=== PATIENT | male | born 1955 | race Caucasian/White ===

== ENCOUNTER 2017-07-30 11:11 | Inpatient (IN) | payer MEDICAID ==
[~2017-07-30] VITALS: Ht 172.7 cm; Wt 95.8 kg
[~2017-07-30 11:11] MED LIST: GLIP10TA10 PO; LOVA40TA73 PO; METF500T4 PO
[2017-07-30 12:55] LABS: BASOPHILS % 0.9 % (0.0-2.0); EOSINOPHILS % 0.8 % (0.0-5.0); HEMATOCRIT. 39.2 % (42.0-52.0); LYMPHOCYTES % 18.8 % (20.0-50.0); MEAN CORPUSCULAR HEMOGLOBIN 29.4 pg (28.0-32.0); MEAN CORPUSCULAR VOLUME 88.8 fL (80.0-94.0); MEAN PLATELET VOLUME 9.7 fl (7.4-10.4); MONOCYTES % 6.2 % (2.0-8.0); NEUTROPHILS % 73.3 % (40.0-76.0); PLATELET 173 x1000/uL (130-400); RED BLOOD CELL COUNT 4.41 mill/uL (4.7-6.1)
[2017-07-30 13:02] LABS: INR 1.1; PROTHROMBIN TIME 11.2 sec (9.4-11.6)
[2017-07-30 13:13] LABS: CARBON DIOXIDE 22 mEq/L (21-32); CHLORIDE 110 mEq/L (98-107)
[2017-07-30 13:23] LABS: TROPONIN I 0.44 ng/mL (0.00-0.04)
[2017-07-30] MEDS ORDERED: ASPIRIN 81MG TABLET PO ONE (14:30)
[2017-07-30] MEDS ORDERED: ACETAMINOPHEN 325MG TABLET PO PRN (14:45)
[2017-07-30] MEDS ORDERED: HYDROCODONE/ACETAMINOPHEN 5/325MG TABLET PO PRN (14:45)
[2017-07-30] MEDS ORDERED: ONDANSETRON HCL 4MG/2ML VIAL IV PRN (14:45)
[2017-07-30] MEDS ORDERED: ENOXAPARIN 40MG/0.4ML SYR SUBCUT SCH (14:45)
[2017-07-30] MEDS ORDERED: MAGNESIUM/ALUMINUM HYDROXIDE/SIMETHICONE 30ML UDC PO PRN (14:45)
[2017-07-30] MEDS ORDERED: DOCUSATE SODIUM 100MG CAPSULE PO PRN (14:45)
[2017-07-30] MEDS ORDERED: IPRATROPIUM/ALBUTEROL 0.5-3(2.5)MG/3ML NEB INH PRN (14:45)
[2017-07-30] MEDS ORDERED: CLONIDINE 0.1MG TABLET PO PRN (14:45)
[2017-07-30 15:32] LABS: CHLORIDE 109 mEq/L (98-107)
[2017-07-30 15:38] LABS: CARBON DIOXIDE 23 mEq/L (21-32)
[2017-07-30] MEDS ORDERED: DEXTROSE 50% WATER 50ML SYRINGE IV ONE (16:00)
[2017-07-30 16:32] VITALS: BP 106/67
[2017-07-30] MEDS ORDERED: OMEG100T PO (16:42)
[2017-07-30] MEDS ORDERED: CLOP75TA16 PO (16:42)
[2017-07-30] MEDS ORDERED: ENAL5TAB PO (16:42)
[2017-07-30] MEDS ORDERED: AMI2 PO (16:42)
[2017-07-30] MEDS ORDERED: FURO40TA5 PO (16:42)
[2017-07-30] MEDS ORDERED: ASPI81TA35 PO (16:42)
[2017-07-30] MEDS ORDERED: CARV12.545 PO (16:42)
[2017-07-30] MEDS: ENOXAPARIN 120MG/0.8ML SYR SUBCUT SCH (16:47)
[2017-07-30] MEDS: FUROSEMIDE 40MG/4ML VIAL IV SCH (16:48)
[2017-07-30] MEDS ORDERED: IOHEXOL-350 100 ML BOTTLE ONE (17:44)
[2017-07-30 18:15] VITALS: BP 106/51
[2017-07-30 20:00] VITALS: BP 96/63
[2017-07-30] MEDS: CARVEDILOL 25MG TABLET PO SCH (21:00)
[2017-07-30] MEDS: ENALAPRIL 5MG TABLET PO SCH (21:00)
[2017-07-30] MEDS: INSULIN LISPRO 100 UNITS/ML SUBCUT SCH (21:00)
[2017-07-30] MEDS: ATORVASTATIN CALCIUM 40MG TABLET PO SCH (21:07)
[2017-07-30] MEDS: BLOOD SUGAR DIAGNOSTIC STRIP TEST SCH (21:12)
[2017-07-30 22:11] LABS: CLARITY URINE CLEAR (CLEAR); COLOR URINE YELLOW (YELLOW); GLUCOSE URINE NEGATIVE (NEGATIVE); KETONES URINE NEGATIVE (NEGATIVE); LEUKOCYTE ESTERASE URINE NEGATIVE (NEGATIVE); NITRITE URINE NEGATIVE (NEGATIVE); OCCULT BLOOD URINE NEGATIVE (NEGATIVE); PROTEIN URINE NEGATIVE (NEGATIVE); SPECIFIC GRAVITY URINE 1.023 (1.005-1.030)
[2017-07-30 22:22] LABS: *AMPHETAMINES SCREEN URINE NEGATIVE (NEGATIVE); *BARBITURATES SCREEN URINE NEGATIVE (NEGATIVE); *BENZODIAZEPINES SCREEN URINE NEGATIVE (NEGATIVE); *COCAINE SCREEN URINE NEGATIVE (NEGATIVE); CANNABINOID URINE SCREEN NEGATIVE (NEGATIVE); METHADONE URINE SCREEN NEGATIVE (NEGATIVE); OPIATES URINE SCREEN NEGATIVE (NEGATIVE); PHENCYCLIDINE URINE SCREEN NEGATIVE (NEGATIVE)
[2017-07-30 23:50] LABS: TROPONIN I 0.36 ng/mL (0.00-0.04)
[2017-07-31] VITALS (7 sets, daily range): BP systolic 89–109; BP diastolic 56–75
[2017-07-31 06:16] LABS: BASOPHILS % 0.8 % (0.0-2.0); EOSINOPHILS % 1.3 % (0.0-5.0); HEMATOCRIT. 39.3 % (42.0-52.0); HEMOGLOBIN. 13.4 g/dL (14.0-18.0); LYMPHOCYTES % 24.7 % (20.0-50.0); MEAN CORPUSCULAR HEMOGLOBIN 30.4 pg (28.0-32.0); MEAN CORPUSCULAR VOLUME 88.9 fL (80.0-94.0); MONOCYTES % 10.6 % (2.0-8.0); NEUTROPHILS % 62.6 % (40.0-76.0); PLATELET 168 x1000/uL (130-400); RED BLOOD CELL COUNT 4.42 mill/uL (4.7-6.1)
[2017-07-31] MEDS: GLIPIZIDE 10MG TABLET PO SCH (06:27)
[2017-07-31] MEDS: ENOXAPARIN 120MG/0.8ML SYR SUBCUT SCH ×2 (06:27→18:22)
[2017-07-31] MEDS: METFORMIN HCL 500MG TABLET PO SCH ×2 (06:27→17:15)
[2017-07-31] MEDS: BLOOD SUGAR DIAGNOSTIC STRIP TEST SCH ×4 (06:28→21:26)
[2017-07-31] MEDS: INSULIN LISPRO 100 UNITS/ML SUBCUT SCH ×4 (06:31→21:00)
[2017-07-31 06:35] LABS: CHLORIDE 107 mEq/L (98-107)
[2017-07-31 06:52] LABS: CARBON DIOXIDE 27 mEq/L (21-32); CREATINE KINASE 49 IU/L (39-308); CREATINE KINASE MB FRACTION 1.3 ng/mL (0.5-3.6); HDL CHOLESTEROL 28 mg/dL (40-59); LDL CHOLESTEROL 56 mg/dL (5-100); TROPONIN I 0.38 ng/mL (0.00-0.04)
[2017-07-31] MEDS: CLOPIDOGREL 75MG TABLET PO SCH (08:58)
[2017-07-31] MEDS: CARVEDILOL 25MG TABLET PO SCH (08:59)
[2017-07-31] MEDS ORDERED: MEDICATION NOT ON FORMULARY EA (Lovastatin 1 TAB) PO SCH (09:00)
[2017-07-31] MEDS: ENALAPRIL 5MG TABLET PO SCH ×2 (09:00→21:00)
[2017-07-31] MEDS: AMIODARONE HCL 200 MG TABLET PO SCH (09:33)
[2017-07-31] MEDS: FUROSEMIDE 40MG/4ML VIAL IV SCH (09:33)
[2017-07-31] MEDS: DEXTROSE 50% WATER 50ML SYRINGE IV PRN ×2 (12:31→16:59)
[2017-07-31] MEDS: ASPIRIN 81MG EC TABLET PO SCH (16:48)
[2017-07-31] MEDS ORDERED: DEXTROSE 5% WATER 1,000 ML IV SCH (17:45)
[2017-07-31] MEDS ORDERED: WARFARIN SODIUM 7.5MG TABLET PO NR (18:00)
[2017-07-31] MEDS: CARVEDILOL 12.5MG TABLET PO SCH (21:00)
[2017-07-31] MEDS: ATORVASTATIN CALCIUM 40MG TABLET PO SCH (21:21)
[2017-08-01] VITALS: BP 108/59
[2017-08-01 04:00] VITALS: BP 102/66
[2017-08-01 05:43] LABS: INR 1.1; PROTHROMBIN TIME 11.9 sec (9.4-11.6)
[2017-08-01 05:48] LABS: BASOPHILS % 0.7 % (0.0-2.0); EOSINOPHILS % 1.8 % (0.0-5.0); HEMATOCRIT. 37.9 % (42.0-52.0); HEMOGLOBIN. 12.6 g/dL (14.0-18.0); LYMPHOCYTES % 27.5 % (20.0-50.0); MEAN CORPUSCULAR HEMOGLOBIN 29.4 pg (28.0-32.0); MEAN CORPUSCULAR VOLUME 88.6 fL (80.0-94.0); MEAN PLATELET VOLUME 9.9 fl (7.4-10.4); MONOCYTES % 8.2 % (2.0-8.0); NEUTROPHILS % 61.8 % (40.0-76.0); PLATELET 168 x1000/uL (130-400); RED BLOOD CELL COUNT 4.28 mill/uL (4.7-6.1); RED CELL DISTRIBUTION WIDTH 15.4 % (11.6-14.6)
[2017-08-01] MEDS: ENOXAPARIN 120MG/0.8ML SYR SUBCUT SCH (05:51)
[2017-08-01] MEDS: BLOOD SUGAR DIAGNOSTIC STRIP TEST SCH (05:53)
[2017-08-01] MEDS: INSULIN LISPRO 100 UNITS/ML SUBCUT SCH (07:15)
[2017-08-01 07:47] LABS: CARBON DIOXIDE 26 mEq/L (21-32); CHLORIDE 106 mEq/L (98-107)
[2017-08-01] MEDS ORDERED: POTASSIUM CHLORIDE 20MEQ TABLET SR PO NR (08:00)
[2017-08-01 08:20] VITALS: BP 94/62
[2017-08-01] MEDS: GLIPIZIDE 10MG TABLET PO SCH (08:52)
[2017-08-01] MEDS: METFORMIN HCL 500MG TABLET PO SCH (08:52)
[2017-08-01] MEDS: CLOPIDOGREL 75MG TABLET PO SCH (08:52)
[2017-08-01] MEDS: ASPIRIN 81MG EC TABLET PO SCH (08:52)
[2017-08-01] MEDS: FUROSEMIDE 40MG/4ML VIAL IV SCH (08:53)
[2017-08-01] MEDS: CARVEDILOL 12.5MG TABLET PO SCH (08:57)
[2017-08-01] MEDS: ENALAPRIL 5MG TABLET PO SCH (08:57)
[2017-08-01] MEDS: AMIODARONE HCL 200 MG TABLET PO SCH (08:58)
[2017-08-01 11:25] VITALS: BP 100/75
[2017-08-01] MEDS ORDERED: APIXABAN 5 MG TABLET PO SCH (17:00)
[2017-08-08] MEDS ORDERED: APIXABAN 5 MG TABLET PO SCH (17:00)
== END 2017-08-01 12:22 | disposition home or self-care (01) | DRG 133 ==
LOC: ER 12:49 → ENRESERV 14:55 → 5WST 15:41
PROVIDERS: ADMIT Internal Medicine; ATTEND Internal Medicine
DX: J96.00 Acute respiratory failure, unspecified whether with hypoxia or hypercapnia (principal); I26.99 Other pulmonary embolism without acute cor pulmonale; I50.23 Acute on chronic systolic (congestive) heart failure; I82.432 Acute embolism and thrombosis of left popliteal vein; I48.0 Paroxysmal atrial fibrillation; E11.9 Type 2 diabetes mellitus without complications; D64.9 Anemia, unspecified; E78.5 Hyperlipidemia, unspecified; I25.10 Atherosclerotic heart disease of native coronary artery without angina pectoris; I25.5 Ischemic cardiomyopathy; I11.0 Hypertensive heart disease with heart failure; E78.00 Pure hypercholesterolemia, unspecified; J45.909 Unspecified asthma, uncomplicated; Z79.02 Long term (current) use of antithrombotics/antiplatelets; Z79.82 Long term (current) use of aspirin; Z79.84 Long term (current) use of oral hypoglycemic drugs; Z95.5 Presence of coronary angioplasty implant and graft; Z79.899 Other long term (current) drug therapy; Z82.49 Family history of ischemic heart disease and other diseases of the circulatory system; Z83.3 Family history of diabetes mellitus
CPT/HCPCS: 36415; 71010; 71275; 80048; 80061; 80305; 81003; 82550; 82553; 82962; 83735; 83880; 84443; 84484; 85025; 85610; 93005; 93306; 93970; 96372; 96374; 99291; J1650; J1940; J7070; Q9967

== ENCOUNTER 2018-01-15 08:26 | Day surgery (SDC) | payer MEDICAID ==
[~2018-01-15 08:26] MED LIST changes: +AMI2 PO; +ASPI81TA35 PO; +CARV12.545 PO; +CLOP75TA16 PO; +ENAL10TA PO; +ENAL5TAB PO; +FURO40TA5 PO; -METF500T4 PO; +OMEG100T PO
[2018-01-15] MEDS ORDERED: SACU1TAB PO (11:01)
[2018-01-15] MEDS ORDERED: POTA10TA19 PO (11:01)
[2018-01-15] MEDS ORDERED: APIX2.5T PO (11:01)
[2018-01-15 11:15] LABS: CHLORIDE 109 mEq/L (98-107)
[2018-01-15] MEDS ORDERED: LIDOCAINE HCL/PF 1% 10 MG/ML 5ML VIAL ONE (11:41)
[2018-01-15] MEDS ORDERED: IODIXANOL 320MG/ML 100 ML BOTTLE IV ONE (11:41)
[2018-01-15] MEDS ORDERED: MIDAZOLAM HCL 2 MG/2 ML VIAL ONE (11:52)
[2018-01-15] MEDS ORDERED: FENTANYL CITRATE/PF 50MCG/ML 2ML VIAL ONE (11:53)
[2018-01-15] MEDS ORDERED: HEPARIN SODIUM 1,000 UNIT/1ML VIAL IV ONE (13:44)
[2018-01-15] MEDS ORDERED: NICARDIPINE 100MCG/ML 10ML VIAL (CATH LAB) IV ONE (13:49)
[2018-01-15] MEDS ORDERED: NITROGLYCERIN 50MCG/ML 10ML VIAL (CATH LAB) IV ONE (13:49)
== END 2018-01-15 16:00 | disposition home or self-care (01) ==
LOC: CCL 08:26
PROVIDERS: ATTEND Specialist
DX: I25.118 Atherosclerotic heart disease of native coronary artery with other forms of angina pectoris (principal); I25.5 Ischemic cardiomyopathy; Z87.891 Personal history of nicotine dependence; I48.0 Paroxysmal atrial fibrillation; E78.4 Other hyperlipidemia; E11.22 Type 2 diabetes mellitus with diabetic chronic kidney disease; I13.0 Hypertensive heart and chronic kidney disease with heart failure and stage 1 through stage 4 chronic kidney disease, or unspecified chronic kidney disease; N18.9 Chronic kidney disease, unspecified; Z79.899 Other long term (current) drug therapy; Z79.82 Long term (current) use of aspirin; I50.43 Acute on chronic combined systolic (congestive) and diastolic (congestive) heart failure; E78.00 Pure hypercholesterolemia, unspecified; Z79.84 Long term (current) use of oral hypoglycemic drugs; I25.2 Old myocardial infarction; Z95.5 Presence of coronary angioplasty implant and graft; J45.909 Unspecified asthma, uncomplicated
CPT/HCPCS: 36415; 80048; 82962; 93458; 99152; C1769; C1887; C1893; J1644; J2250; J3010; J3490; Q9967

== ENCOUNTER 2018-08-31 07:19 | Inpatient (IN) | payer MEDICAID ==
[2018-08-31] VITALS (15 sets, daily range): BP systolic 118–142; BP diastolic 83–102
[~2018-08-31] VITALS: Ht 172.7 cm; Wt 108.2 kg
[~2018-08-31 07:19] MED LIST changes: -AMI2 PO; +APIX2.5T PO; +ASPI-1158 PO; -ASPI81TA35 PO; +ASPI81TA47 PO; +ATOR10TA PO; -CARV12.545 PO; -ENAL10TA PO; -ENAL5TAB PO; +FURO10VI3 PO; -FURO40TA5 PO; +LISI-186 PO; -LOVA40TA73 PO; -OMEG100T PO
[2018-08-31 08:16] LABS: CHLORIDE 109 mEq/L (98-107)
[2018-08-31 08:19] LABS: PARTIAL THROMBOPLASTIN TIME 26.7 sec (23.4-31.0); PROTHROMBIN TIME 10.5 sec (9.1-11.1)
[2018-08-31 08:27] LABS: HEMATOCRIT 48.7 % (42.0-52.0); HEMOGLOBIN 16.5 g/dL (14.0-18.0); MEAN CORPUSCULAR HEMOGLOBIN 31.3 pg (28.0-32.0); MEAN CORPUSCULAR VOLUME 92.5 fL (80.0-94.0); PLATELET 173 x1000/uL (130-400); RED BLOOD CELL COUNT 5.27 mill/uL (4.7-6.1); RED CELL DISTRIBUTION WIDTH 13.6 % (11.6-14.6)
[2018-08-31] MEDS ORDERED: CARV3.1242 MT (08:36)
[2018-08-31] MEDS ORDERED: SACU1TAB MT (08:36)
[2018-08-31] MEDS ORDERED: METF-816 MT (08:36)
[2018-08-31] MEDS ORDERED: LOVA40TA73 MT (08:36)
[2018-08-31] MEDS ORDERED: GENTAMICIN SULF 40MG/ML 2ML VIAL ONE (08:38)
[2018-08-31] MEDS ORDERED: GENTAMICIN/NS IRRIGATION 500 ML IR ONE (08:39)
[2018-08-31] MEDS ORDERED: LIDOCAINE HCL 1% 20ML VIAL (Pyxis) INJ ONE (08:39)
[2018-08-31] MEDS ORDERED: IOHEXOL-300 100 ML BOTTLE ONE (08:39)
[2018-08-31] MEDS ORDERED: GLYCOPYRROLATE 0.2 MG/ML 2ML VIAL ONE (10:48)
[2018-08-31] MEDS ORDERED: PROPOFOL 200MG/20ML VIAL IV ONE (10:48)
[2018-08-31] MEDS ORDERED: FENTANYL CITRATE/PF 50MCG/ML 2ML VIAL ONE (10:48)
[2018-08-31] MEDS ORDERED: ROCURONIUM BROMIDE 10MG/ML VIAL 5ML IV ONE (10:48)
[2018-08-31] MEDS ORDERED: NEOSTIGMINE METHYLSULFATE 1MG/ML 10 ML VIAL ONE (10:48)
[2018-08-31] MEDS ORDERED: MIDAZOLAM HCL 2 MG/2 ML VIAL ONE ×2 (10:48→11:00)
[2018-08-31] MEDS ORDERED: PHENYLEPHRINE HCL 10 MG/ML 1ML (IV VIAL) IV ONE (10:49)
[2018-08-31] MEDS ORDERED: EPHEDRINE SULFATE 50MG/ML VIAL ONE (10:49)
[2018-08-31] MEDS ORDERED: METOCLOPRAMIDE HCL 10MG/2ML VIAL ONE (10:49)
[2018-08-31] MEDS ORDERED: ONDANSETRON HCL 4MG/2ML INJ ONE (10:49)
[2018-08-31] MEDS ORDERED: CEFAZOLIN SODIUM 1000MG/VIAL ONE (10:49)
[2018-08-31] MEDS ORDERED: LIDOCAINE HCL/PF 1% 10 MG/ML 5ML VIAL ONE (10:49)
[2018-08-31] MEDS ORDERED: SODIUM CHLORIDE 0.9% 10ML VIAL ONE (10:49)
[2018-08-31] MEDS ORDERED: SUCCINYLCHOLINE CHLORIDE 200MG/10ML IV ONE (10:49)
[2018-08-31] MEDS ORDERED: PROPOFOL 10MG/ML 100ML 100 ML IV ONE (11:01)
[2018-08-31] MEDS ORDERED: HYDROCODONE/ACETAMINOPHEN 5/325MG TABLET PO PRN (12:45)
[2018-08-31] MEDS ORDERED: FURO20TA4 MT (13:50)
[2018-08-31] MEDS ORDERED: ZOLPIDEM TARTRATE 5MG TABLET PO PRN (14:30)
[2018-08-31] MEDS: APIXABAN 2.5 MG TABLET PO SCH (16:38)
[2018-08-31] MEDS ORDERED: ATORVASTATIN CALCIUM 10MG TABLET PO SCH (21:00)
[2018-08-31] MEDS: CARVEDILOL 3.125 MG TABLET PO SCH (21:09)
[2018-09-01] VITALS (9 sets, daily range): BP systolic 125–136; BP diastolic 75–98
[2018-09-01 07:52] LABS: BASOPHILS % 0.6 % (0.0-2.0); HEMATOCRIT. 46.7 % (42.0-52.0); LYMPHOCYTES % 15.8 % (20.0-50.0); MEAN CORPUSCULAR HEMOGLOBIN 31.7 pg (28.0-32.0); MEAN CORPUSCULAR VOLUME 92.4 fL (80.0-94.0); MEAN PLATELET VOLUME 9.2 fl (7.4-10.4); MONOCYTES % 8.8 % (2.0-8.0); NEUTROPHILS % 72.8 % (40.0-76.0); PLATELET 147 x1000/uL (130-400); RED BLOOD CELL COUNT 5.06 mill/uL (4.7-6.1); RED CELL DISTRIBUTION WIDTH 13.9 % (11.6-14.6)
[2018-09-01 07:58] LABS: CHLORIDE 108 mEq/L (98-107)
[2018-09-01] MEDS: CARVEDILOL 3.125 MG TABLET PO SCH (08:09)
[2018-09-01] MEDS: APIXABAN 2.5 MG TABLET PO SCH (08:10)
[2018-09-01] MEDS ORDERED: GLIPIZIDE 10MG TABLET PO SCH (09:00)
== END 2018-09-01 14:20 | disposition home or self-care (01) | DRG 161 ==
LOC: CCL 07:19 → 3WST 07:20
PROVIDERS: ADMIT Internal Medicine Clinical Cardiac Electrophysiology; ATTEND Internal Medicine Clinical Cardiac Electrophysiology
PROC: 0JH608Z Insertion of Defibrillator Generator into Chest Subcutaneous Tissue and Fascia, Open Approach (ICD-10-PCS; 2018-08-31)
PROC: B5171ZZ Fluoroscopy of Left Subclavian Vein using Low Osmolar Contrast (ICD-10-PCS; 2018-08-31)
PROC: 4A023N6 Measurement of Cardiac Sampling and Pressure, Right Heart, Percutaneous Approach (ICD-10-PCS; 2018-08-31)
PROC: 02HK3KZ Insertion of Defibrillator Lead into Right Ventricle, Percutaneous Approach (ICD-10-PCS; 2018-08-31)
PROC: 02H63KZ Insertion of Defibrillator Lead into Right Atrium, Percutaneous Approach (ICD-10-PCS; principal; 2018-08-31 10:00)
DX: R00.1 Bradycardia, unspecified (principal); E11.22 Type 2 diabetes mellitus with diabetic chronic kidney disease; I27.20 Pulmonary hypertension, unspecified; I13.0 Hypertensive heart and chronic kidney disease with heart failure and stage 1 through stage 4 chronic kidney disease, or unspecified chronic kidney disease; E78.5 Hyperlipidemia, unspecified; I50.22 Chronic systolic (congestive) heart failure; F17.200 Nicotine dependence, unspecified, uncomplicated; I25.10 Atherosclerotic heart disease of native coronary artery without angina pectoris; I25.5 Ischemic cardiomyopathy; I48.0 Paroxysmal atrial fibrillation; I34.0 Nonrheumatic mitral (valve) insufficiency; J44.9 Chronic obstructive pulmonary disease, unspecified; F51.04 Psychophysiologic insomnia; N18.9 Chronic kidney disease, unspecified; Z86.718 Personal history of other venous thrombosis and embolism; I25.2 Old myocardial infarction; Z95.5 Presence of coronary angioplasty implant and graft; Z71.6 Tobacco abuse counseling
CPT/HCPCS: 33249; 36415; 71045; 75820; 80048; 82962; 85027; 93005; 93451; 93641; A4216; A4565; C1721; C1892; C1893; C1898; C1899; J0330; J0690; J1580; J1644; J2250; J2370; J2405; J2704; J2710; J2765; J3010; J3490; J7050; Q9967

== ENCOUNTER 2021-08-19 19:05 | Inpatient (IN) | payer MEDICARE, OTHER ==
[~2021-08-19] VITALS: Ht 167.6 cm; Wt 103.5 kg
[~2021-08-19 19:05] MED LIST changes: -ASPI-1158 PO; +CARV3.1242 MT; +CLOP-31 PO; -CLOP75TA16 PO; -FURO10VI3 PO; +FURO20TA4 MT; +LOVA40TA73 MT; +METF-874 MT; +SACU1TAB MT
[2021-08-19] MEDS ORDERED: SODIUM CHLORIDE 0.9% 1,000 ML IV ONE (19:30)
[2021-08-19] MEDS ORDERED: ASPIRIN 325MG EC TABLET PO ONE (20:00)
[2021-08-19 20:13] LABS: BASOPHILS % 0.9 % (0.0-2.0); EOSINOPHILS % 1.6 % (0.0-5.0); HEMATOCRIT. 47.3 % (42.0-52.0); HEMOGLOBIN. 15.8 g/dL (14.0-18.0); LYMPHOCYTES % 21.7 % (20.0-50.0); MEAN CORPUSCULAR HEMOGLOBIN 30.2 pg (28.0-32.0); MEAN CORPUSCULAR VOLUME 90.6 fL (80.0-94.0); MEAN PLATELET VOLUME 10.2 fl (7.4-10.4); MONOCYTES % 8.3 % (2.0-8.0); NEUTROPHILS % 67.5 % (40.0-76.0); PLATELET 184 x1000/uL (130-400); RED BLOOD CELL COUNT 5.22 mill/uL (4.7-6.1)
[2021-08-19 20:16] LABS: CHLORIDE 107 mEq/L (98-107)
[2021-08-19 20:25] LABS: PARTIAL THROMBOPLASTIN TIME 25.4 sec (23.4-31.0); PROTHROMBIN TIME 10.4 sec (9.6-11.0)
[2021-08-20] VITALS (10 sets, daily range): BP systolic 96–138; BP diastolic 68–92
[2021-08-20] MEDS ORDERED: DEXTROSE 50% WATER 50ML SYRINGE IV PRN ×2 (04:15)
[2021-08-20] MEDS: BLOOD SUGAR DIAGNOSTIC STRIP TEST SCH ×4 (07:30→21:27)
[2021-08-20] MEDS: INSULIN LISPRO 100 UNITS/ML SUBCUT SCH ×4 (08:26→21:26)
[2021-08-20] MEDS: ASPIRIN 81MG EC TABLET PO SCH (08:27)
[2021-08-20] MEDS: LISINOPRIL 5MG TABLET PO SCH (08:27)
[2021-08-20] MEDS: FUROSEMIDE 20MG TABLET PO SCH ×2 (08:27→21:24)
[2021-08-20] MEDS ORDERED: APIXABAN 2.5 MG TABLET PO SCH (09:00)
[2021-08-20 09:46] LABS: CHLORIDE 105 mEq/L (98-107)
[2021-08-20 09:52] LABS: BASOPHILS % 0.6 % (0.0-2.0); HEMATOCRIT. 46.2 % (42.0-52.0); HEMOGLOBIN. 15.4 g/dL (14.0-18.0); LYMPHOCYTES % 19.2 % (20.0-50.0); MEAN CORPUSCULAR HEMOGLOBIN 30.1 pg (28.0-32.0); MEAN CORPUSCULAR VOLUME 90.2 fL (80.0-94.0); MEAN PLATELET VOLUME 10.4 fl (7.4-10.4); MONOCYTES % 7.7 % (2.0-8.0); NEUTROPHILS % 71.5 % (40.0-76.0); PLATELET 179 x1000/uL (130-400); RED BLOOD CELL COUNT 5.12 mill/uL (4.7-6.1); RED CELL DISTRIBUTION WIDTH 14.1 % (11.6-14.6)
[2021-08-20 09:53] LABS: LDL CHOLESTEROL 89 mg/dL (5-100)
[2021-08-20 09:54] LABS: HDL CHOLESTEROL 29 mg/dL (40-59)
[2021-08-20] MEDS ORDERED: CARVEDILOL 3.125 MG TABLET PO SCH (10:45)
[2021-08-20] MEDS: CARVEDILOL 3.125 MG TABLET PO SCH (21:25)
[2021-08-20] MEDS: ENOXAPARIN 100MG/ML SYR SUBCUT SCH (21:26)
[2021-08-20] MEDS: ATORVASTATIN CALCIUM 10MG TABLET PO SCH (21:30)
[2021-08-21] VITALS: BP 112/72
[2021-08-21 04:00] VITALS: BP 99/70
[2021-08-21 05:24] LABS: BASOPHILS % 0.6 % (0.0-2.0); EOSINOPHILS % 1.6 % (0.0-5.0); HEMATOCRIT. 46.2 % (42.0-52.0); HEMOGLOBIN. 15.2 g/dL (14.0-18.0); LYMPHOCYTES % 22.4 % (20.0-50.0); MEAN CORPUSCULAR VOLUME 91.2 fL (80.0-94.0); NEUTROPHILS % 67.4 % (40.0-76.0); PLATELET 172 x1000/uL (130-400); RED BLOOD CELL COUNT 5.07 mill/uL (4.7-6.1); RED CELL DISTRIBUTION WIDTH 13.9 % (11.6-14.6)
[2021-08-21 05:44] LABS: CHLORIDE 108 mEq/L (98-107)
[2021-08-21] MEDS: BLOOD SUGAR DIAGNOSTIC STRIP TEST SCH ×5 (07:30→21:32)
[2021-08-21 08:00] VITALS: BP 112/79
[2021-08-21] MEDS: LISINOPRIL 5MG TABLET PO SCH (09:03)
[2021-08-21] MEDS: FUROSEMIDE 20MG TABLET PO SCH ×2 (09:03→21:39)
[2021-08-21] MEDS: ASPIRIN 81MG EC TABLET PO SCH (09:03)
[2021-08-21] MEDS: CARVEDILOL 3.125 MG TABLET PO SCH ×2 (09:03→21:39)
[2021-08-21] MEDS: ENOXAPARIN 100MG/ML SYR SUBCUT SCH ×2 (09:04→21:40)
[2021-08-21] MEDS: INSULIN LISPRO 100 UNITS/ML SUBCUT SCH ×4 (09:06→21:38)
[2021-08-21 12:00] VITALS: BP 114/68
[2021-08-21 16:00] VITALS: BP 109/64
[2021-08-21] MEDS: ATORVASTATIN CALCIUM 10MG TABLET PO SCH (21:39)
[2021-08-22 04:00] VITALS: BP 94/63
[2021-08-22 06:00] VITALS: BP 100/64
[2021-08-22] MEDS: BLOOD SUGAR DIAGNOSTIC STRIP TEST SCH ×3 (07:30→20:22)
[2021-08-22 08:00] VITALS: BP 117/77
[2021-08-22] MEDS: INSULIN LISPRO 100 UNITS/ML SUBCUT SCH ×3 (08:00→20:22)
[2021-08-22] MEDS: FUROSEMIDE 20MG TABLET PO SCH ×2 (09:00→20:21)
[2021-08-22] MEDS: CARVEDILOL 3.125 MG TABLET PO SCH ×2 (09:00→20:21)
[2021-08-22] MEDS: LISINOPRIL 5MG TABLET PO SCH (09:00)
[2021-08-22] MEDS ORDERED: NITROGLYCERIN 50MCG/ML 10ML VIAL (CATH LAB) IV ONE (09:02)
[2021-08-22] MEDS ORDERED: NICARDIPINE 100MCG/ML 10ML VIAL (CATH LAB) IV ONE (09:02)
[2021-08-22 09:53] LABS: BASOPHILS % 0.6 % (0.0-2.0); HEMATOCRIT. 44.8 % (42.0-52.0); HEMOGLOBIN. 14.8 g/dL (14.0-18.0); LYMPHOCYTES % 17.7 % (20.0-50.0); MEAN CORPUSCULAR VOLUME 91.1 fL (80.0-94.0); MEAN PLATELET VOLUME 10.1 fl (7.4-10.4); MONOCYTES % 7.2 % (2.0-8.0); NEUTROPHILS % 73.5 % (40.0-76.0); PLATELET 164 x1000/uL (130-400); RED BLOOD CELL COUNT 4.92 mill/uL (4.7-6.1); RED CELL DISTRIBUTION WIDTH 13.9 % (11.6-14.6)
[2021-08-22 09:59] LABS: CHLORIDE 104 mEq/L (98-107)
[2021-08-22] MEDS ORDERED: MIDAZOLAM HCL 2 MG/2 ML VIAL ONE (10:34)
[2021-08-22] MEDS ORDERED: HEPARIN 1000 UNITS/ML 10ML ONE (10:34)
[2021-08-22] MEDS ORDERED: FENTANYL CITRATE/PF 50MCG/ML 2ML VIAL ONE (10:34)
[2021-08-22] MEDS ORDERED: MIDAZOLAM HCL 5 MG/5 ML VIAL ONE (10:35)
[2021-08-22] MEDS ORDERED: FENTANYL CITRATE/PF 50MCG/ML 5ML VIAL ONE (10:35)
[2021-08-22] MEDS ORDERED: IODIXANOL 320MG/ML 100 ML BOTTLE IV ONE (10:36)
[2021-08-22] MEDS ORDERED: IOHEXOL-300 100 ML BOTTLE ONE (10:36)
[2021-08-22] MEDS ORDERED: LIDOCAINE HCL 1% 20ML VIAL (Pyxis) INJ ONE (10:36)
[2021-08-22] MEDS ORDERED: ATROPINE SULFATE 1MG/10ML SYR IV PRN (11:30)
[2021-08-22] MEDS ORDERED: ACETAMINOPHEN 325MG TABLET PO PRN (11:30)
[2021-08-22] MEDS ORDERED: ONDANSETRON HCL 4MG/2ML INJ IV PRN (11:30)
[2021-08-22] MEDS ORDERED: ASPIRIN 81MG TABLET ONE (11:52)
[2021-08-22] MEDS ORDERED: CLOPIDOGREL 75MG TABLET ONE (11:53)
[2021-08-22] MEDS ORDERED: SITA100T11 PO (15:20)
[2021-08-22 17:30] VITALS: BP 118/79
[2021-08-22 20:08] VITALS: BP 117/74
[2021-08-22] MEDS: ATORVASTATIN CALCIUM 10MG TABLET PO SCH (20:21)
[2021-08-22 22:00] VITALS: BP 106/67
[2021-08-23] VITALS: BP 111/70
[2021-08-23 02:00] VITALS: BP 107/65
[2021-08-23 04:00] VITALS: BP 96/67
[2021-08-23 06:00] VITALS: BP 114/74
[2021-08-23 06:29] LABS: BASOPHILS % 0.5 % (0.0-2.0); EOSINOPHILS % 1.3 % (0.0-5.0); HEMATOCRIT. 43.7 % (42.0-52.0); HEMOGLOBIN. 14.7 g/dL (14.0-18.0); LYMPHOCYTES % 13.6 % (20.0-50.0); MEAN CORPUSCULAR VOLUME 89.3 fL (80.0-94.0); MEAN PLATELET VOLUME 9.9 fl (7.4-10.4); MONOCYTES % 8.7 % (2.0-8.0); NEUTROPHILS % 75.9 % (40.0-76.0); PLATELET 154 x1000/uL (130-400); RED BLOOD CELL COUNT 4.89 mill/uL (4.7-6.1); RED CELL DISTRIBUTION WIDTH 14.1 % (11.6-14.6)
[2021-08-23 06:39] LABS: CHLORIDE 106 mEq/L (98-107)
[2021-08-23] MEDS: BLOOD SUGAR DIAGNOSTIC STRIP TEST SCH (07:06)
[2021-08-23 07:30] VITALS: BP 105/67
[2021-08-23 07:35] VITALS: BP 105/67
[2021-08-23] MEDS: LISINOPRIL 5MG TABLET PO SCH (07:47)
[2021-08-23] MEDS: INSULIN LISPRO 100 UNITS/ML SUBCUT SCH (07:47)
[2021-08-23] MEDS: FUROSEMIDE 20MG TABLET PO SCH (07:48)
[2021-08-23] MEDS: CARVEDILOL 3.125 MG TABLET PO SCH (07:48)
[2021-08-23] MEDS ORDERED: ASPIRIN 325MG TABLET PO SCH (09:00)
[2021-08-23] MEDS ORDERED: CLOPIDOGREL 75MG TABLET PO SCH (09:00)
== END 2021-08-23 08:51 | disposition home health service (06) | DRG 247 ==
LOC: ER 19:05 → MICUSO 22:19 → EDBEDREQ 22:33 → EDBEDREQTM 22:33 → 5EST 08-20 02:48 → 3WST 08-22 12:27
PROVIDERS: ADMIT Internal Medicine; ATTEND Internal Medicine
PROC: 4B02XTZ Measurement of Cardiac Defibrillator, External Approach (ICD-10-PCS; 2021-08-20)
PROC: 027034Z Dilation of Coronary Artery, One Artery with Drug-eluting Intraluminal Device, Percutaneous Approach (ICD-10-PCS; principal; 2021-08-22)
PROC: B211YZZ Fluoroscopy of Multiple Coronary Arteries using Other Contrast (ICD-10-PCS; 2021-08-22)
PROC: 4A023N7 Measurement of Cardiac Sampling and Pressure, Left Heart, Percutaneous Approach (ICD-10-PCS; 2021-08-22)
DX: I47.2 Ventricular tachycardia (principal); I50.22 Chronic systolic (congestive) heart failure; I42.0 Dilated cardiomyopathy; I25.10 Atherosclerotic heart disease of native coronary artery without angina pectoris; E11.9 Type 2 diabetes mellitus without complications; E66.9 Obesity, unspecified; E78.5 Hyperlipidemia, unspecified; I11.0 Hypertensive heart disease with heart failure; E78.00 Pure hypercholesterolemia, unspecified; Z20.822 Contact with and (suspected) exposure to COVID-19; Z95.5 Presence of coronary angioplasty implant and graft; Z95.810 Presence of automatic (implantable) cardiac defibrillator; Z79.2 Long term (current) use of antibiotics; Z79.01 Long term (current) use of anticoagulants; Z79.899 Other long term (current) drug therapy; Z79.84 Long term (current) use of oral hypoglycemic drugs; Z86.718 Personal history of other venous thrombosis and embolism; Z86.711 Personal history of pulmonary embolism; Z68.36 Body mass index [BMI] 36.0-36.9, adult
CPT/HCPCS: 36415; 71045; 80048; 80053; 80061; 82962; 83036; 83735; 83880; 84443; 84484; 85025; 85347; 87426; 92928; 93005; 93306; 93458; 99291; C1769; C1874; C1887; C1893; J1644; J1650; J1815; J2250; J3010; J3490; J7030; Q9967

== ENCOUNTER 2021-09-03 14:41 | Inpatient (IN) | payer MEDICARE, MEDICAID ==
[~2021-09-03] VITALS: Ht 172.7 cm; Wt 102.7 kg
[~2021-09-03 14:41] MED LIST changes: -LISI-186 PO; +SITA100T11 PO
[2021-09-03 15:20] LABS: CHLORIDE 106 mEq/L (98-107)
[2021-09-03 15:24] LABS: BASOPHILS % 0.7 % (0.0-2.0); EOSINOPHILS % 0.9 % (0.0-5.0); HEMATOCRIT. 48.6 % (42.0-52.0); HEMOGLOBIN. 15.8 g/dL (14.0-18.0); LYMPHOCYTES % 14.3 % (20.0-50.0); MEAN CORPUSCULAR HEMOGLOBIN 29.6 pg (28.0-32.0); MEAN CORPUSCULAR VOLUME 90.7 fL (80.0-94.0); MEAN PLATELET VOLUME 10.3 fl (7.4-10.4); MONOCYTES % 7.9 % (2.0-8.0); NEUTROPHILS % 76.2 % (40.0-76.0); PLATELET 206 x1000/uL (130-400); RED BLOOD CELL COUNT 5.35 mill/uL (4.7-6.1); RED CELL DISTRIBUTION WIDTH 14.2 % (11.6-14.6)
[2021-09-03] MEDS ORDERED: AMIODARONE HCL 900 MG in DEXT 5% WATER 482 ML IV SCH (16:30)
[2021-09-03] MEDS ORDERED: AMIODARONE HCL 150 MG in DEXT 5% WATER 100 ML IV NR (16:30)
[2021-09-03] MEDS: CARVEDILOL 3.125 MG TABLET PO SCH (18:00)
[2021-09-03] MEDS ORDERED: APIXABAN 2.5 MG TABLET PO SCH (21:00)
[2021-09-03] MEDS: ATORVASTATIN CALCIUM 20MG TABLET PO SCH (21:46)
[2021-09-03] MEDS ORDERED: IPRATROPIUM/ALBUTEROL 0.5-3(2.5)MG/3ML NEB NEB PRN (22:00)
[2021-09-03] MEDS ORDERED: ACETAMINOPHEN 325MG TABLET PO PRN ×2 (22:00)
[2021-09-03] MEDS ORDERED: DEXTROSE 50% WATER 50ML SYRINGE IV PRN (22:00)
[2021-09-03] MEDS ORDERED: ONDANSETRON HCL 4MG/2ML INJ IV PRN (22:00)
[2021-09-03] MEDS ORDERED: NITROGLYCERIN 0.4MG TABLET SL SL PRN (22:00)
[2021-09-03] MEDS ORDERED: TRAMADOL 50MG TABLET PO PRN (22:00)
[2021-09-03] MEDS ORDERED: ZOLPIDEM TARTRATE 5MG TABLET PO PRN (22:00)
[2021-09-03] MEDS ORDERED: GUAIFENESIN 200MG/10ML SUGAR FREE UDC PO PRN (22:00)
[2021-09-03] MEDS ORDERED: DOCUSATE SODIUM 100MG CAPSULE PO PRN (22:00)
[2021-09-03] MEDS ORDERED: CLONIDINE 0.1MG TABLET PO PRN (22:00)
[2021-09-03] MEDS ORDERED: MAGNESIUM/ALUMINUM HYDROXIDE/SIMETHICONE 30ML UDC PO PRN (22:00)
[2021-09-03] MEDS ORDERED: ENOXAPARIN 40MG/0.4ML SYR SUBCUT SCH (22:00)
[2021-09-03 22:16] LABS: TOTAL IRON BINDING CAPACITY 326 ug/dL (250-450)
[2021-09-03 22:35] LABS: FOLIC ACID (FOLATE) SERUM 13.5 ng/mL (>5.38)
[2021-09-03] MEDS ORDERED: NALOXONE HCL 0.4MG/ML VIAL IV PRN (22:45)
[2021-09-04] VITALS (11 sets, daily range): BP systolic 87–131; BP diastolic 55–92
[2021-09-04 00:08] LABS: CREATINE KINASE 58 IU/L (39-308)
[2021-09-04 00:09] LABS: CREATINE KINASE MB FRACTION < 1.0 ng/mL (0.5-3.6)
[2021-09-04] MEDS: CYANOCOBALAMIN 1000MCG/ML VIAL IM SCH ×2 (03:00→08:43)
[2021-09-04] MEDS: CARVEDILOL 3.125 MG TABLET PO SCH ×2 (05:27→17:44)
[2021-09-04] MEDS: APIXABAN 2.5 MG TABLET PO SCH ×2 (05:27→17:42)
[2021-09-04 06:35] LABS: BASOPHILS % 0.6 % (0.0-2.0); EOSINOPHILS % 0.9 % (0.0-5.0); HEMATOCRIT. 42.9 % (42.0-52.0); HEMOGLOBIN. 14.5 g/dL (14.0-18.0); LYMPHOCYTES % 20.5 % (20.0-50.0); MEAN CORPUSCULAR HEMOGLOBIN 30.6 pg (28.0-32.0); MEAN CORPUSCULAR VOLUME 90.6 fL (80.0-94.0); MEAN PLATELET VOLUME 10.4 fl (7.4-10.4); MONOCYTES % 8.6 % (2.0-8.0); NEUTROPHILS % 69.4 % (40.0-76.0); PLATELET 172 x1000/uL (130-400); RED BLOOD CELL COUNT 4.73 mill/uL (4.7-6.1)
[2021-09-04 06:58] LABS: CHLORIDE 107 mEq/L (98-107)
[2021-09-04 07:08] LABS: PHOSPHORUS 2.3 mg/dL (2.5-4.9)
[2021-09-04 07:11] LABS: CREATINE KINASE 60 IU/L (39-308); CREATINE KINASE MB FRACTION < 1.0 ng/mL (0.5-3.6)
[2021-09-04] MEDS: BLOOD SUGAR DIAGNOSTIC STRIP TEST SCH ×4 (07:30→21:37)
[2021-09-04] MEDS: INSULIN LISPRO 100 UNITS/ML SUBCUT SCH ×4 (08:00→21:00)
[2021-09-04] MEDS: CLOPIDOGREL 75MG TABLET PO SCH (08:39)
[2021-09-04] MEDS: ZINC SULFATE 220 MG ( 50 ) CAPSULE PO SCH (08:40)
[2021-09-04] MEDS: ASCORBIC ACID 500 MG TABLET PO SCH ×2 (08:40→21:37)
[2021-09-04] MEDS: FAMOTIDINE 20MG TABLET PO SCH ×2 (08:40→21:37)
[2021-09-04] MEDS: ASPIRIN 81MG EC TABLET PO SCH (08:40)
[2021-09-04] MEDS: CHOLECALCIFEROL (D3) 1000 UNIT TABLET PO SCH (08:43)
[2021-09-04] MEDS ORDERED: POTASSIUM CHLORIDE 20MEQ TABLET SR PO NR (10:15)
[2021-09-04] MEDS: AMIODARONE HCL 200 MG TABLET PO SCH ×2 (11:37→21:38)
[2021-09-04] MEDS: ATORVASTATIN CALCIUM 20MG TABLET PO SCH (21:38)
[2021-09-05] VITALS: BP 97/65
[2021-09-05 02:00] VITALS: BP 106/65
[2021-09-05 04:00] VITALS: BP 116/78
[2021-09-05] MEDS: APIXABAN 2.5 MG TABLET PO SCH (05:09)
[2021-09-05] MEDS: CARVEDILOL 3.125 MG TABLET PO SCH (05:11)
[2021-09-05 06:00] VITALS: BP 104/69
[2021-09-05 07:05] LABS: BASOPHILS % 0.7 % (0.0-2.0); EOSINOPHILS % 1.6 % (0.0-5.0); HEMATOCRIT. 42.7 % (42.0-52.0); HEMOGLOBIN. 14.4 g/dL (14.0-18.0); LYMPHOCYTES % 16.8 % (20.0-50.0); MEAN CORPUSCULAR HEMOGLOBIN 30.5 pg (28.0-32.0); MEAN CORPUSCULAR VOLUME 90.5 fL (80.0-94.0); MEAN PLATELET VOLUME 10.4 fl (7.4-10.4); MONOCYTES % 8.2 % (2.0-8.0); NEUTROPHILS % 72.7 % (40.0-76.0); PLATELET 167 x1000/uL (130-400); RED BLOOD CELL COUNT 4.72 mill/uL (4.7-6.1); RED CELL DISTRIBUTION WIDTH 13.8 % (11.6-14.6)
[2021-09-05 07:56] LABS: CHLORIDE 107 mEq/L (98-107)
[2021-09-05 08:00] VITALS: BP 109/77
[2021-09-05] MEDS: INSULIN LISPRO 100 UNITS/ML SUBCUT SCH (08:00)
[2021-09-05] MEDS: BLOOD SUGAR DIAGNOSTIC STRIP TEST SCH (08:20)
[2021-09-05] MEDS: ASCORBIC ACID 500 MG TABLET PO SCH (08:29)
[2021-09-05] MEDS: ZINC SULFATE 220 MG ( 50 ) CAPSULE PO SCH (08:29)
[2021-09-05] MEDS: CYANOCOBALAMIN 1000MCG/ML VIAL IM SCH (08:30)
[2021-09-05] MEDS: ASPIRIN 81MG EC TABLET PO SCH (08:30)
[2021-09-05] MEDS: CHOLECALCIFEROL (D3) 1000 UNIT TABLET PO SCH (08:30)
[2021-09-05] MEDS: FAMOTIDINE 20MG TABLET PO SCH (08:30)
[2021-09-05] MEDS: AMIODARONE HCL 200 MG TABLET PO SCH (08:30)
[2021-09-05] MEDS: CLOPIDOGREL 75MG TABLET PO SCH (08:35)
== END 2021-09-05 11:45 | disposition home or self-care (01) | DRG 282 ==
LOC: ER 14:41 → EDBEDREQTM 20:37 → EDBEDREQSVC 20:37 → EDBEDREQ 20:37 → SUPCPDRO 21:46 → ENRESERV 23:33 → 5EST 23:49
PROVIDERS: ADMIT Internal Medicine; ATTEND Internal Medicine
DX: I47.2 Ventricular tachycardia (principal); I21.4 Non-ST elevation (NSTEMI) myocardial infarction; E11.9 Type 2 diabetes mellitus without complications; E53.8 Deficiency of other specified B group vitamins; E66.9 Obesity, unspecified; E78.00 Pure hypercholesterolemia, unspecified; E78.5 Hyperlipidemia, unspecified; E87.6 Hypokalemia; I11.0 Hypertensive heart disease with heart failure; I25.10 Atherosclerotic heart disease of native coronary artery without angina pectoris; I25.5 Ischemic cardiomyopathy; I48.0 Paroxysmal atrial fibrillation; I50.9 Heart failure, unspecified; Z82.3 Family history of stroke; I25.2 Old myocardial infarction; Z95.5 Presence of coronary angioplasty implant and graft; Z95.810 Presence of automatic (implantable) cardiac defibrillator; Z79.01 Long term (current) use of anticoagulants; Z79.82 Long term (current) use of aspirin; Z79.899 Other long term (current) drug therapy; Z68.34 Body mass index [BMI] 34.0-34.9, adult; Z79.4 Long term (current) use of insulin
CPT/HCPCS: 36415; 71045; 80048; 80053; 82550; 82553; 82607; 82746; 82962; 83540; 83550; 83735; 83880; 84100; 84443; 84484; 85025; 93005; 93970; 99285; J0282; J1815; J3420; J7060

== ENCOUNTER → 2023-08-08 | Outpatient (CLI) | payer MEDICARE ==
[~2023-08-08] MED LIST changes: +AMI2 PO; +AMIO100T4 PO; +APIX2.5T MT; -APIX2.5T PO; +ASCO500T20 PO; +ASPI81TA43 PO; -CLOP-31 PO; +DAPA5TAB MT; +DAPA5TAB PO; +ERGO1250 PO; +FERR-63 PO; -FURO20TA4 MT; +FURO20TA4 PO; -GLIP10TA10 PO; +GLIP5TAB22 MT; +LATA2.5D14 EACHEYE; -LOVA40TA73 MT; +METF-817 MT; -METF-874 MT; +MIDO5TAB4 PO; -SITA100T11 PO
== END | disposition home or self-care (01) ==
LOC: CT 09:46
PROVIDERS: ATTEND Surgery
DX: T81.49XA Infection following a procedure, other surgical site, initial encounter (principal); J44.9 Chronic obstructive pulmonary disease, unspecified; J84.9 Interstitial pulmonary disease, unspecified; K57.30 Diverticulosis of large intestine without perforation or abscess without bleeding; M47.817 Spondylosis without myelopathy or radiculopathy, lumbosacral region; K40.20 Bilateral inguinal hernia, without obstruction or gangrene, not specified as recurrent; X58.XXXA Exposure to other specified factors, initial encounter
CPT/HCPCS: 74176

== ENCOUNTER → 2023-08-13 | Day surgery (SDC) | payer MEDICARE ==
[~2023-08-13] VITALS: Ht 170.2 cm; Wt 83.9 kg
[2023-08-13] VITALS (9 sets, daily range): BP systolic 103–118; BP diastolic 62–76; RESP 16–18
[~2023-08-13] MED LIST changes: +FENTANYL CITRATE/PF 50MCG/ML 2ML VIAL IV ONE; +FENTANYL CITRATE/PF 50MCG/ML 2ML VIAL ONE; +LIDOCAINE HCL 1% 10 MG/ML 10ML VIAL ONE; +SODIUM BICARBONATE 4% (2.4MEQ) 5ML VIAL IV ONE
== END | disposition home or self-care (01) ==
LOC: RAD 08:39
PROVIDERS: ATTEND Surgery
DX: L02.211 Cutaneous abscess of abdominal wall (principal); Z79.82 Long term (current) use of aspirin; Z79.84 Long term (current) use of oral hypoglycemic drugs; Z79.899 Other long term (current) drug therapy; Z98.890 Other specified postprocedural states; Z82.49 Family history of ischemic heart disease and other diseases of the circulatory system
CPT/HCPCS: 87070; 87186; 87205; 87077; 49406; J3010; J3490 ×2; Z7610 ×3; C1729; C1769; 49180; 77012; 99152; 99153; G0500

== ENCOUNTER → 2023-09-11 | Outpatient (CLI) | payer MEDICARE ==
[~2023-09-11] MED LIST changes: -FENTANYL CITRATE/PF 50MCG/ML 2ML VIAL IV ONE; -FENTANYL CITRATE/PF 50MCG/ML 2ML VIAL ONE; +IOHEXOL-300 50 ML BOTTLE IV ONE; -LIDOCAINE HCL 1% 10 MG/ML 10ML VIAL ONE; -SODIUM BICARBONATE 4% (2.4MEQ) 5ML VIAL IV ONE
== END | disposition home or self-care (01) ==
LOC: CT 09:15
PROVIDERS: ATTEND Surgery
DX: L02.211 Cutaneous abscess of abdominal wall (principal)
CPT/HCPCS: 74176; Q9967

== ENCOUNTER → 2023-10-14 | Outpatient (CLI) | payer MEDICARE ==
[~2023-10-14] MED LIST changes: -IOHEXOL-300 50 ML BOTTLE IV ONE
== END | disposition home or self-care (01) ==
LOC: CT 09:20
PROVIDERS: ATTEND Surgery
DX: K43.9 Ventral hernia without obstruction or gangrene (principal); K40.20 Bilateral inguinal hernia, without obstruction or gangrene, not specified as recurrent; N40.0 Benign prostatic hyperplasia without lower urinary tract symptoms; K91.5 Postcholecystectomy syndrome; K80.20 Calculus of gallbladder without cholecystitis without obstruction; N28.1 Cyst of kidney, acquired; K57.30 Diverticulosis of large intestine without perforation or abscess without bleeding; I71.9 Aortic aneurysm of unspecified site, without rupture; M47.816 Spondylosis without myelopathy or radiculopathy, lumbar region; M43.17 Spondylolisthesis, lumbosacral region
CPT/HCPCS: 74176

== ENCOUNTER → 2023-11-13 | Day surgery (SDC) | payer MEDICARE, OTHER ==
[~2023-11-13] MED LIST changes: +DIATR MEGLU/DIATRIZOATE SOLN 30ML ONE; +LIDOCAINE HCL 1% 10 MG/ML 10ML VIAL ONE
== END | disposition home or self-care (01) ==
LOC: RAD 09:25
PROVIDERS: ATTEND Surgery
DX: K57.30 Diverticulosis of large intestine without perforation or abscess without bleeding (principal); N28.1 Cyst of kidney, acquired; Z79.82 Long term (current) use of aspirin; Z79.84 Long term (current) use of oral hypoglycemic drugs; Z79.899 Other long term (current) drug therapy; Z90.49 Acquired absence of other specified parts of digestive tract; Z98.890 Other specified postprocedural states; Z82.49 Family history of ischemic heart disease and other diseases of the circulatory system
CPT/HCPCS: 74176; J1642; J3490; Q9963